=== PATIENT | male | born 1970 | race Caucasian/White ===

== ENCOUNTER → 2024-08-19 | Outpatient (CLI) | payer OTHER ==
--- NOTE | 2024-08-19 13:52 | CT ---
EXAMINATION TYPE: CT abdomen pelvis wo con CT DLP: 808.80 mGycm, Automated exposure control for dose reduction was used. DATE OF EXAM: 08/19/2024 12:52 PM COMPARISON: None CLINICAL INDICATION:Male, 53 years old with history of R10.9 ABDOMINAL PAIN; ABDOMINAL PAIN TECHNIQUE: Standard CT of the abdomen and pelvis without IV or oral contrast. Lack of IV or oral co ntrast limits evaluation of solid and hollow organ viscera. Coronal and sagittal reformats were perfo rmed. FINDINGS: LOWER CHEST: Unremarkable ABDOMEN LIVER: Surface nodularity to the liver with posterior notch sign. GALLBLADDER AND BILE DUCTS: Unremarkable noncontrast appearance. PANCREAS: Unremarkable noncontrast appearance SPLEEN: Enlarged measuring 17.5 cm in AP dimension. ADRENAL GLANDS: Unremarkable. KIDNEYS AND URETERS: No evidence of hydronephrosis or renal calculus. Couple left renal cortical cyst s are subcentimeter hyperdense foci. PELVIS BLADDER: Incompletely distended but grossly unremarkable. REPRODUCTIVE: Coarse calcifications of the prostate gland are identified. ABDOMEN & PELVIS STOMACH AND BOWEL: Stomach and duodenum are unremarkable. Redundant sigmoid colon. No focal bowel wal l thickening or surrounding inflammatory changes. No evidence of bowel obstruction. PERITONEUM: No evidence of pneumoperitoneum or free fluid. VASCULATURE: Mild atherosclerotic calcifications are present throughout the abdominal aorta and its b ranches. No evidence of aortic aneurysm. Few pelvic phleboliths. MUSCULOSKELETAL: No acute osseous abnormalities. No aggressive osseous lesions. LYMPH NODES: Mildly enlarged bilateral inguinal lymph nodes with largest on the left measuring up to 1.7 cm short axis. Enlarged periaortic lymph nodes with the exam including of a left periaortic left measuring 2.3 cm (series 3, image 74). SOFT TISSUE/ABDOMINAL WALL: Tiny fat filled umbilical hernia. IMPRESSION: 1. Findings of hepatic cirrhosis with suspicion for portal hypertension with splenomegaly. No ascites . 2. Nonspecific enlarged para-aortic and bilateral inguinal lymph nodes. Further workup is recommended . 3. Both subcentimeter left renal cortical hypodense foci likely representing proteinaceous/hemorrhagi c cysts. Consider further evaluation with renal ultrasound. [facility], , 08/19/2024 1:50 PM
== END | disposition home or self-care (01) ==
LOC: RADCTMAIN 12:21
PROVIDERS: ATTEND Internal Medicine Hospice and Palliative Medicine
DX: K74.60 Unspecified cirrhosis of liver (principal); R59.0 Localized enlarged lymph nodes; K76.6 Portal hypertension; K42.9 Umbilical hernia without obstruction or gangrene; I70.0 Atherosclerosis of aorta
CPT/HCPCS: 74176

== ENCOUNTER → 2024-09-13 | Outpatient (CLI) | payer OTHER ==
--- NOTE | 2024-09-13 18:12 | CA ---
Transthoracic Echo Report Name: Ibrahima Yeboah Age: 53 Gender: M : 1970 Exam Date: 09/13/2024 12:53 Exam Location: [facility] Ht (in): 73 Wt (lb): 231 Ordering Physician: Rory Merchant MD Attending/Referring Phys: Familia Kohli [facility] [employer] Sara Black RDCS Procedure CPT: Indications: R01.1 cardiac murmur, Other transient cerebral ischemic attacks and related syndromes Cardiac Hx: Technical Quality: Good Contrast 1: Agitated Saline Total Dose (mL): 09 Contrast 2: Total Dose (mL): MEASUREMENTS (Male / Female) Normal Values 2D ECHO LV Diastolic Diameter PLAX 5.2 cm 4.2 - 5.9 / 3.9 - 5.3 cm LV Systolic Diameter PLAX 2.4 cm IVS Diastolic Thickness 1.1 cm 0.6 - 1.0 / 0.6 - 0.9 cm LVPW Diastolic Thickness 1.0 cm 0.6 - 1.0 / 0.6 - 0.9 cm LV Relative Wall Thickness 0.4 RV Internal Dim ED PLAX 4.2 cm LA Systolic Diameter LX 4.7 cm 3.0 - 4.0 / 2.7 - 3.8 cm LV Diastolic Volume MOD BP 197.7 cm??? 67 - 155 / 56 - 104 cm??? LV Systolic Volume MOD BP 73.7 cm??? 22 - 58 / 19 - 49 cm??? LV Ejection Fraction MOD BP 62.7 % >= 55 % LV Cardiac Index MOD BP 3329.1 cm???/min???m??? LV Diastolic Volume MOD 4C 198.0 cm??? LV Systolic Volume MOD 4C 57.8 cm??? LV Ejection Fraction MOD 4C 70.8 % LV Cardiac Index MOD 4C 3763.6 cm???/min???m??? LV Diastolic Length 4C 10.3 cm LV Systolic Length 4C 8.0 cm LV Diastolic Volume MOD 2C 195.5 cm??? LV Systolic Volume MOD 2C 86.1 cm??? LV Ejection Fraction MOD 2C 56.0 % LV Cardiac Index MOD 2C 2935.7 cm???/min???m??? LV Diastolic Length 2C 10.2 cm LV Systolic Length 2C 8.9 cm LA Volume 79.1 cm??? 18 - 58 / 22 - 52 cm??? LA Volume Index 33.7 cm???/m??? 16 - 28 cm???/m??? DOPPLER LVOT Peak Velocity 149.6 cm/s LVOT Peak Gradient 9.0 mmHg LVOT Velocity Time Integral 36.3 cm MV Area PHT 1.9 cm??? Mitral E Point Velocity 67.8 cm/s Mitral A Point Velocity 78.8 cm/s Mitral E to A Ratio 0.9 MV Deceleration Time 393.7 ms MV E' Velocity 8.6 cm/s Mitral E to MV E' Ratio 7.9 TR Peak Velocity 291.4 cm/s TR Peak Gradient 34.0 mmHg Right Ventricular Systolic Press 39.0 mmHg FINDINGS Left Ventricle Mildly increased left ventricular wall thickness. Normal left ventricular systolic function with no obvious regional wall motion abnormalities. Left ventricular ejection fraction is estimated at 60-65 %. Right Ventricle Moderate right ventricular dilatation. Mild pulmonary hypertension. Right ventricular systolic pressure estimated at 39 mm hg. Right Atrium Normal right atrial size. Left Atrium Mildly increased left atrial diameter. Mildly increased left atrial volume. Mildly increased left atrial area. Mitral Valve Structurally normal mitral valve. Mild mitral annular calcification. Mild mitral regurgitation. Aortic Valve Trileaflet aortic valve. No aortic stenosis. Trace aortic regurgitation. Tricuspid Valve Structurally normal tricuspid valve. Mild tricuspid regurgitation. Pulmonic Valve Structurally normal pulmonic valve. Pericardium No pericardial effusion. Aorta Normal size aortic root and proximal ascending aorta. CONCLUSIONS LVEF 60% No obvious regional wall motion abnormality RV appears dilated with mild pulmonary hypertension with RVSP of 39 mmHg Mild LA dilatation with aneurysmal interatrial septum. Mild mitral regurgitation and mild mitral stenosis. No evidence of [id number] intracardiac shunting noticed on bubble study. Previewed by: Dr Magno Martinez (Electronically Signed) Final Date: 13 September 2024 18:11
== END | disposition home or self-care (01) ==
LOC: RADECHMAIN 12:23
PROVIDERS: ATTEND Internal Medicine Hospice and Palliative Medicine
DX: I34.0 Nonrheumatic mitral (valve) insufficiency (principal); I27.20 Pulmonary hypertension, unspecified; R01.1 Cardiac murmur, unspecified
CPT/HCPCS: 93306